=== PATIENT | male | born 1950 | race Caucasian/White ===

== ENCOUNTER 2023-01-10 08:47 | Day surgery (SDC) | payer OTHER ==
[~2023-01-10] VITALS: Ht 179.1 cm; Wt 123.8 kg
[~2023-01-10 08:47] MED LIST: ATEN50TA2 PO; BACL10TA2 PO; D 1010004 PO; LIDOCAINE 2% 100MG/5ML SDV (FOR ANES.) As Ordered ONE; LOSA100T8 PO; NS 1,000 ML IV ONE; SIMV40TA20 PO; propofoL 200 MG/20 ML VIAL As Ordered ONE
[2023-01-10] MEDS ORDERED: propofoL 200 MG/20 ML VIAL As Ordered ONE (10:31)
[2023-01-10 10:58] VITALS: BP 112/53
== END 2023-01-10 11:06 | disposition home or self-care (01) ==
LOC: M OPP 08:47
PROVIDERS: ATTEND Internal Medicine Gastroenterology
DX: Z12.11 Encounter for screening for malignant neoplasm of colon (principal); K64.8 Other hemorrhoids; K57.30 Diverticulosis of large intestine without perforation or abscess without bleeding; Z79.02 Long term (current) use of antithrombotics/antiplatelets; Z79.899 Other long term (current) drug therapy; Z88.6 Allergy status to analgesic agent